=== PATIENT | male | born 1990 | race Caucasian/White ===

== ENCOUNTER → 2020-02-13 | Emergency (ER) | payer OTHER ==
[~2020-02-13] VITALS: Ht 165.1 cm; Wt 97.7 kg
[2020-02-13 15:02] VITALS: BP 117/76
== END | disposition home or self-care (01) ==
LOC: EMS 15:04
DX: Z03.818 Encounter for observation for suspected exposure to other biological agents ruled out (principal); F12.90 Cannabis use, unspecified, uncomplicated; F17.210 Nicotine dependence, cigarettes, uncomplicated
CPT/HCPCS: 99283; U0003